=== PATIENT | female | born 1985 | race African-American/Black ===

== ENCOUNTER 2017-03-16 19:39 | Emergency (ER) | payer OTHER ==
[2017-03-16 19:47] VITALS: BP 214/104; BMI 26.6
--- NOTE | 2017-03-16 20:34 | DR.GENAD ---
HPI - PCP Primary Care Physician: VALDES - Complaint/Symptoms Chief Complaint Doctors Comments: Patient presents with complaint of nose bleed this morning and a headache, frontal Chief Complaint:: NOSE BLEED X 2 DAYS; EARACHE IN LEFT EAR Self Treatment fo Chief Complaint: SWEET OIL IN LEFT EAR; ADVIL; IBUPROFEN - Source History Provided: Patient - Mode of Arrival Mode of Arrival: Ambulatory - Timing Onset of Chief Complaint: 03/15/17 PMH - PMH Past Medical History: Yes Past Medical History: Asthma, Hypertension Past Surgical History: No - Family History History of Family Medical Conditions: No Family Medical History: Diabetes Mellitus, Hypertension - Social History Type of Tobacco Use: Cigarettes Alcohol Use: None Do you use any recreational Drugs:: No Lives With: Alone Lives Where: Home - infectious screening In the last 2 months have you had wt loss of >10#?: NO Have you had fever, night sweats or hemotysis?: No Have you traveled outside the country in the last 6 months?: No Isolation: Standard ROS - Review of Systems Eyes: No Symptoms Reported ENTM: No Symptoms Reported Respiratoy: No Symptoms Reported Cardiovascular: No Symptoms Reported Gastrointestinal/Abdominal: No Symptoms Reported Genitourinary: No Symptoms Reported Neurological: No Symptoms Reported Musculoskeletal: No Symptoms Reported Integumentary: No Symptoms Reported Hematologic/Lymphatic: No Symptoms Reported Endocrine: No Symptoms Reported Psychiatric: No Symptoms Reported All Other Systems: Reviewed and Negative PE - Vital Signs Vitals: Temperature 98.9 F Pulse Rate 69 Respiratory Rate 22 Blood Pressure [Right Arm] 146/81 Blood Pressure [Left Arm] 167/81 Blood Pressure 214/104 O2 Sat by Pulse Oximetry 98 - General Limitations: No Limitations General Appearance: Alert, In No Apparent Distress - Head Head Exam: Normal Inspection, Atraumatic, Other (left maxillary sinus tender to percussion) - Eyes Eye exam: Normal Appearance, PERRL, EOMI - ENT ENT Exam: Normal Exam External Ear Exam: Normal External Inspection TM/Canal Exam: Bilateral Normal Nose Exam: Abrasion (left medial septum) Mouth Exam: Normal Inspection Throat Exam: Normal Inspection - Neck Neck Exam: Normal Inspection, Full ROM - Chest Chest Inspection: Normal Inspection, Symmetric Chest Wall Rise - Respiratory Respiratory Exam: Normal Lung Sounds Bilat Respiratory Exam: Bilateral Clear to Auscultation - Cardiovascular Cardiovascular Exam: Regular Rate, Normal Rhythm - Abdominal Exam Abdominal Exam: Normal Inspection, Normal Bowel Sounds Abdominal Tenderness: negative: RUQ, RLQ, LUQ, LLQ, Epigastrium, Suprapubic, Diffuse, Mild, Moderate, Severe, Other - Extremities Extremities Exam: Normal Inspection, Full ROM - Back Back Exam: Normal Inspection, Full ROM - Neurologic Neurological Exam: Alert, Oriented X3, CN II-XII Intact - Psychiatric Psychiatric Exam: Normal Affect, Normal Mood - Diagnosis Discharge Problem: Epistaxis not due to trauma Maxillary sinusitis, acute Qualifiers: Recurrence: not specified as recurrent Qualified Code(s): J01.00 - Acute maxillary sinusitis, unspecified - Discharge Plan Condition: Stable - Follow ups/Referrals Follow ups/Referrals: CHIRAG VALDES [Primary Care Provider] - 3 days - Instructions
== END 2017-03-16 20:53 | disposition home or self-care (01) ==
LOC: ER 19:50
DX: R04.0 Epistaxis (principal); J01.80 Other acute sinusitis
CPT/HCPCS: 99281; 99282

== ENCOUNTER → 2017-04-29 | Outpatient (CLI) | payer OTHER | LOC: LAB 10:29 | PROVIDERS: ATTEND Obstetrics & Gynecology Obstetrics | DX: Z20.9 Contact with and (suspected) exposure to unspecified communicable disease (principal) | CPT/HCPCS: 36415; 86695; 86696; 86701 ==

== ENCOUNTER 2018-07-09 04:32 | Inpatient (IN) ==
--- NOTE | 2018-07-09 05:27 | DR.GENAD ---
HPI - PCP Primary Care Physician: - Complaint/Symptoms Chief Complaint Doctors Comments: Patient states she has been coughing up blood with SOB and xiphoid pain for the last 1 1/2 hours. States she woke up coughing blood with SOB and problems breathing. She denies fever, chills, cold, nauea or vomiting. States this is her eighth and she has seven living children and she is 36 weeks gestation. She denies tobacco or alcohol use. She denies stomach pain or history of ulcers. States she saw Dr. Valdes few days ago and everything was fine. She denies hematuria or oscar. She denies aspirin or tylenol use. She is complaining of SOB but denies wheezing. She denies leg or calf tenderness. Chief Complaint:: PT STATED SHE WAS SLEEP AN STARTING COUGHING. SOB AND COUGHING UP BLOOD. - Nurses notes reviewed Nurses Notes Review: Yes - Source History Provided: Patient - Mode of Arrival Mode of Arrival: Ambulatory - Timing Onset of Chief Complaint: 07/09/18 Came on: Suddenly - Duration Duration: Constant How lon Duration: Minutes - Location Location: xiphoid chest pain - Severity Severity: Moderate - Modifying Factors Worsens:: coughing Improves:: nothing PMH - PMH Past Medical History: No Past Medical History: Asthma, Hypertension Past Surgical History: No - Family History History of Family Medical Conditions: Yes Family Medical History: Diabetes Mellitus - Social History Does patient currently use any type of tobacco product: Yes Have you used tobacco products in the last 12 months: Yes Type of Tobacco Use: Cigarettes Does any household member use tobacco: No Alcohol Use: None Do you use any recreational Drugs:: No Lives With: Alone Lives Where: Home - infectious screening In the last 2 months have you had wt loss of >10#?: NO Have you had fever, night sweats or hemotysis?: No Have you traveled outside the country in the last 6 months?: No ROS - Review of Systems Constitutional: No Symptoms Reported. negative: See HPI, Chills, Diaphoresis, F ever, Malaise, Weakness, Irritable, Fatigue, Loss of Appetite, Other Eyes: No Symptoms Reported ENTM: No Symptoms Reported. negative: See HPI, Ear Pain, Ear Discharge, Pulling on Ears, Hearing Loss, Nose Pain, Nose Discharge, Epistaxis, Nose Congestion, Mouth Pain, Mouth Swelling, Loose Teeth, Drooling, Throat Pain, Throat Swelling, Ear Foreign Body, Tooth/Dental Pain Respiratoy: Productive Cough (cough with bright red blood), Short of Breath. negative: No Symptoms Reported, See HPI, Non-Productive Cough, Moist Cough, Dry Cough, Hacking Cough, Barking Cough, Brassy Cough, Orthopnea, Stridor, Wheezing, Hemoptysis, Other Cardiovascular: No Symptoms Reported, Chest Pain (xiphoid pain). negative: See HPI, Edema, Palpitations, Syncope, Cyanosis, Skin Mottling, Other Gastrointestinal/Abdominal: No Symptoms Reported. negative: See HPI, Abdominal Pain, Constipation, Diarrhea, Nausea, Vomiting, Food Intolerance, Other Genitourinary: No Symptoms Reported Neurological: No Symptoms Reported Musculoskeletal: No Symptoms Reported Integumentary: No Symptoms Reported. negative: See HPI, Change in Color, Change in Hair/Nails, Dryness, Lesions, Lumps, Rash, Itching, Wound, Bruises, Juandice, Other Hematologic/Lymphatic: No Symptoms Reported Endocrine: No Symptoms Reported Psychiatric: No Symptoms Reported. negative: See HPI, Anxiety, Depression, Hallucinations, Excessive crying, Suicidal, Other PE - General Limitations: No Limitations General Appearance: Alert, In Distress (slight) - Head Head Exam: Normal Inspection, Atraumatic, Normocephalic - Eyes Eye exam: Normal Appearance, PERRL, EOMI. negative: Scleral Icterus, Conjunctival Injection, Nystagmus, Miosis, Mydrasis, Periorbital Swelling, Periorbital Tenderness, Other - ENT ENT Exam: Normal Exam, Normal Oropharynx, Normal External Ear Exam, Mucous Membranes Moist, TM's Normal Bilaterally External Ear Exam: Normal External Inspection TM/Canal Exam: Bilateral Normal Nose Exam: Normal Nose Exam Mouth Exam: Normal Inspection. negative: Drooling, Trismus, Lip Swelling, Tongue Elevation, Tongue Swelling, Laceration, Other Throat Exam: Normal Inspection - Neck Neck Exam: Normal Inspection, Full ROM, Trachea Midline. negative: Tenderness, Meningismus, Lymphadenopathy, Thyromegaly, Other - Chest Chest Inspection: Normal Inspection, Symmetric Chest Wall Rise. negative: Tenderness, Rash, Abscess, Other - Respiratory Respiratory Exam: Normal Lung Sounds Bilat Respiratory Exam: Bilateral Rales, Bilateral Decreased Breath Sounds - Cardiovascular Cardiovascular Exam: Regular Rate, Normal Rhythm, Normal Heart Sounds - Abdominal Exam Abdominal Exam: Normal Inspection, Normal Bowel Sounds, Soft (gravid) Abdominal Tenderness: negative: RUQ, RLQ, LUQ, LLQ, Epigastrium, Suprapubic, Diffuse, Mild, Moderate, Severe, Other - Extremities Extremities Exam: Normal Inspection, Full ROM, Normal Capillary Refill. negative: Tenderness, Edema, Joint Swelling, Calf Tenderness, Other - Back Back Exam: Normal Inspection, Full ROM. negative: Tenderness, (R) CVA Tenderness, (L) CVA Tenderness, Muscle Spasm, Paraspinal Tenderness, Vertebral Tenderness, Rashes, (R) Sciatic Notch Tenderness, (L) Sciatic Notch Tendern, (R) Straight Leg Raise, (L) Straight Leg Raise, Other - Neurologic Neurological Exam: Alert, Oriented X3, CN II-XII Intact, Normal Gait, Reflexes Normal - Psychiatric Psychiatric Exam: Normal Affect, Normal Mood. negative: Depressed, Agitated, Anxious, Flat Affect, Manic, Homicidal Ideation, Suicidal Ideation, Other - Skin Skin Exam: Warm, Dry, Intact, Normal Color. negative: Rash, Cyanosis, Diaphoresis, Erythema, Pallor, Mottled, Other - Vital Signs Vitals: Temperature 97.6 F Pulse Rate [Apical] 76 Pulse Rate 76 Respiratory Rate 37 Blood Pressure [Right Arm] 164/79 Blood Pressure [Left Arm] 167/81 Blood Pressure 140/69 O2 Sat by Pulse Oximetry 96 Course - Consultation Called: 08:24 Call Returned: 08:24 (Dr. Valdes to admit) Consultation Comments: Dr. Valdes states to admit do ECHO cardogram in am; Rocephin one gram IV; Zithromax 500mg IV then 250mg daily; Toprol XL 100mg daily; heart tone q8h for 30 minutes stripes; Thiamine level; Labs in am. - Education/Counseling Education/Counseling: Patient Educated On: Treatment, Diagnosis, Needs for Follow Up ROR - Labs Reviewed Laboratory Results Reviewed?: Yes (All labs and x-ray results reviewed and discussed with patient) Result Diagrams: 07/09/18 05:44 07/09/18 05:44 - XRAY XRAY Interpreted by: Radiologist (CTA: No CT evidence of pulmonary embolism. Cardiomegaly with diffuse airspace disease abilaterally in keeping with edema and/or infiltrate. Small bilateral pleural effusions) - Labs Reviewed Laboratory: WBC 11.5 X10^3/uL (3.6-10.0) H 07/09/18 05:44 RBC 3.50 X10^6/uL (3.5-5.4) 07/09/18 05:44 Hgb 10.5 g/dL (12.0-16.0) L 07/09/18 05:44 Hct 31.7 % (36.0-47.0) L 07/09/18 05:44 MCV 90.4 fL (80.0-100.0) 07/09/18 05:44 MCH 30.1 pg (27.0-34.0) 07/09/18 05:44 MCHC 33.2 g/dL (33.0-35.0) 07/09/18 05:44 RDW 14.3 % (11.6-16.5) 07/09/18 05:44 Plt Count 200 X10^3/uL (150.0-450.0) 07/09/18 05:44 MPV 9.2 fL (7.4-11.0) 07/09/18 05:44 Neut % (Auto) 82.6 % (42.0-75.0) H 07/09/18 05:44 Lymph % (Auto) 12.3 % (21.0-51.0) L 07/09/18 05:44 [place] % (Auto) 3.1 % (0.0-13.0) 07/09/18 05:44 Eos % (Auto) 1.1 % (0.9-2.9) 07/09/18 05:44 Baso % (Auto) 0.9 % (0.2-1.0) 07/09/18 05:44 Neut # (Auto) 9.5 x10^3/uL (2.2-4.8) H 07/09/18 05:44 Lymph # (Auto) 1.4 X10^3/uL (1.3-2.9) 07/09/18 05:44 [place] # (Auto) 0.4 x10^3/uL (0.3-0.8) 07/09/18 05:44 Eos # (Auto) 0.1 x10^3/uL (0.0-0.2) 07/09/18 05:44 Baso # (Auto) 0.1 X10^3/uL (0.0-0.1) 07/09/18 05:44 Absolute Nucleated RBC 0.0 /100WBC 07/09/18 05:44 INR Target Range - 07/09/18 05:44 INR 1.00 (0.8-1.3) 07/09/18 05:44 APTT 27.8 SECONDS (22.9-36.5) 07/09/18 05:44 PTT Comment - 07/09/18 05:44 D-Dimer 942 ng/mL (0-400) H* 07/09/18 05:44 Sodium 140 mmol/L (136-145) 07/09/18 05:44 Corrected Sodium TNP 07/09/18 05:44 Potassium 3.1 mmol/L (3.5-5.1) L 07/09/18 05:44 Chloride 106 mmol/L (98-107) 07/09/18 05:44 Carbon Dioxide 21.8 mmol/L (21-32) 07/09/18 05:44 BUN 6 mg/dL (7-18) L 07/09/18 05:44 Creatinine 0.42 mg/dL (0.55-1.02) L 07/09/18 05:44 Est GFR (MDRD) Af Amer > 60 (>60) 07/09/18 05:44 Est GFR (MDRD) Non-Af > 60 (>60) 07/09/18 05:44 Glucose 80 mg/dL (65-99) 07/09/18 05:44 Calcium 7.8 mg/dL (8.5-10.1) L 07/09/18 05:44 Corrected Calcium 9.1 mg/dL (8.5-10.1) 07/09/18 05:44 Magnesium 1.5 mg/dL (1.7-2.9) L 07/09/18 05:44 Total Bilirubin 0.20 mg/dL (0.2-1.0) 07/09/18 05:44 AST 18 Units/L (15-37) 07/09/18 05:44 ALT 11 Units/L (12-78) L 07/09/18 05:44 Alkaline Phosphatase 97 Units/L (46-116) 07/09/18 05:44 Creatine Kinase 150 Units/L (26-192) 07/09/18 05:44 CK-MB (CK-2) 2.4 ng/mL (0-4.0) 07/09/18 05:44 CK/CKMB % Calc 1.6 % (<4) 07/09/18 05:44 Troponin I < 0.02 ng/mL (0-1.5) 07/09/18 05:44 Total Protein 6.2 g/dL (6.4-8.2) L 07/09/18 05:44 Albumin 2.4 g/dL (3.4-5.0) L 07/09/18 05:44 Globulin 3.8 g/dL (2.5-4.5) 07/09/18 05:44 Albumin/Globulin Ratio 0.6 Ratio (1.1-2.1) L 07/09/18 05:44 - Diagnosis Discharge Problem: Respiratory distress, Bilateral pleural effusion, Cardiomegaly, Intrauterine , Pulmonary infiltrate, Hypokalemia Pulmonary edema Qualifiers: Chronicity: acute Qualified Code(s): J81.0 - Acute pulmonary edema Chest pain Qualifiers: Chest pain type: unspecified Qualified Code(s): R07.9 - Chest pain, unspecified - Discharge Plan Disposition: ADMITTED INPATIENT Condition: Stable - Follow ups/Referrals Follow ups/Referrals: CHIRAG VALDES [Primary Care Provider] - 3 days - Instructions
[2018-07-09 05:52] LABS: BASOPHILS # (AUTO) 0.1 X10^3/uL (0.0-0.1); BASOPHILS % (AUTO) 0.9 % (0.2-1.0); EOSINOPHILS # (AUTO) 0.1 x10^3/uL (0.0-0.2); EOSINOPHILS % (AUTO) 1.1 % (0.9-2.9); HEMATOCRIT 31.7 % (36.0-47.0); HEMOGLOBIN 10.5 g/dL (12.0-16.0); LYMPHOCYTES # (AUTO) 1.4 X10^3/uL (1.3-2.9); LYMPHOCYTES % (AUTO) 12.3 % (21.0-51.0); MEAN CORPUSCULAR HEMOGLOBIN 30.1 pg (27.0-34.0); MEAN CORPUSCULAR HGB CONC 33.2 g/dL (33.0-35.0); MEAN CORPUSCULAR VOLUME 90.4 fL (80.0-100.0); MEAN PLATELET VOLUME 9.2 fL (7.4-11.0); MONOCYTES # (AUTO) 0.4 x10^3/uL (0.3-0.8); MONOCYTES % (AUTO) 3.1 % (0.0-13.0); NEUTROPHILS # (AUTO) 9.5 x10^3/uL (2.2-4.8); NEUTROPHILS % (AUTO) 82.6 % (42.0-75.0); PLATELET COUNT 200 X10^3/uL (150.0-450.0); RED CELL DISTRIBUTION WIDTH 14.3 % (11.6-16.5); WHITE BLOOD COUNT 11.5 X10^3/uL (3.6-10.0)
[2018-07-09] MEDS ORDERED: NS 1000 ML 1,000 ML IV SCH (06:00)
[2018-07-09 06:08] LABS: BLOOD UREA NITROGEN 6 mg/dL (7-18); CALCIUM 7.8 mg/dL (8.5-10.1); CARBON DIOXIDE 21.8 mmol/L (21-32); CHLORIDE 106 mmol/L (98-107); CREATININE 0.42 mg/dL (0.55-1.02); SODIUM 140 mmol/L (136-145); TROPONIN I < 0.02 ng/mL (0-1.5); eGFR NON BLACK RACES > 60 (>60)
[2018-07-09 06:12] LABS: ALANINE AMINOTRANSFERASE 11 Units/L (12-78); ALBUMIN 2.4 g/dL (3.4-5.0); ALKALINE PHOSPHATASE 97 Units/L (46-116); ASPARTATE AMINO TRANSFERASE 18 Units/L (15-37); CKMB % 1.6 % (<4); COR CA(FOR HYPOALB) 9.1 mg/dL (8.5-10.1); CREATINE KINASE 150 Units/L (26-192); CREATINE KINASE MB 2.4 ng/mL (0-4.0); MAGNESIUM 1.5 mg/dL (1.7-2.9); TOTAL PROTEIN 6.2 g/dL (6.4-8.2)
[2018-07-09] MEDS ORDERED: K-LYTE EFFERVESCENT PO STA (06:23)
[2018-07-09] MEDS ORDERED: NS 100 ML IV 100 ML ONE (06:45)
--- NOTE | 2018-07-09 07:52 | CT ---
HISTORY: Shortness of breath, hemoptysis Study: CT chest with contrast Comparison: None Technique: Multiple axial images of the chest were obtained from the thoracic inlet to the upper abdomen with the administration of IV contrast. Coronal and sagittal three-dimensional reformatted MIP images were also submitted utilizing CTA protocol. Dose reduction techniques including automated exposure control (AEC) and adjustment of mA and kV were utilized. Findings: The mediastinum does not demonstrate definite evidence of significant pathological lymphadenopathy. There is no significant pericardial effusion observed. The heart is enlarged. The thoracic aorta is normal in its contour without evidence for aneurysmal dilatation. Allowing for streak artifact, no definite focal well-circumscribed filling defects are appreciated within the main pulmonary arteries. Evaluation of the more distal branches is somewhat limited due to extensive diffuse bilateral pulmonary opacities suggesting edema and/or infiltrate. Recommend clinical correlation and continued close interval follow-up for further evaluation. Small bilateral pleural effusions are also noted right greater than left. IMPRESSION: No definite CT evidence of pulmonary embolism is appreciated as noted above. Cardiomegaly. Diffuse airspace disease bilaterally suggesting edema and/or infiltrate. Correlate clinically. Small bilateral pleural effusions. Reported By:
[2018-07-09] MEDS ORDERED: ROCEPHIN VIAL 1 GRAM IVP ONE (08:21)
[2018-07-09] MEDS ORDERED: ROCEPHIN VIAL 1 GRAM ONE (08:22)
[2018-07-09] MEDS ORDERED: ZOFRAN INJ 4 MG VIAL IVP PRN (08:26)
[2018-07-09] MEDS ORDERED: TOPROL XL PO STA (08:31)
[2018-07-09 08:50] LABS: BILIRUBIN,URINE NEGATIVE (NEGATIVE); BLOOD/HEMOGLOBIN,URINE 1+ (NEGATIVE); GLUCOSE, URINE NEGATIVE (NEGATIVE); KETONES,URINE NEGATIVE (NEGATIVE); LEUKOCYTE ESTERASE ,URINE 1+ (NEGATIVE); NITRITES,URINE NEGATIVE (NEGATIVE); PROTEIN,URINE 2+ (NEGATIVE); UROBILINOGEN,URINE NORMAL (NORMAL)
[2018-07-09 09:15] LABS: AMORPHOUS SEDIMENT,UR TRACE /HPF (NEGATIVE); APPEARANCE,URINE HAZY (CLEAR); BACTERIA,URINE TRACE /HPF (NEGATIVE); COLOR,URINE YELLOW (YELLOW); HYALINE CASTS, URINE RARE /LPF (NEGATIVE); RBC,URINE 0-2 /HPF (NONE SEEN); SQUAMOUS EPITHELIAL CELL,UR MANY /HPF (NEGATIVE)
[2018-07-09 10:11] VITALS: BMI 30.2
[2018-07-09] MEDS: ZITHROMAX INJ 500 MG VIAL 500 MG in NS 250 ML IV 250 ML IV SCH (10:12)
[2018-07-09 11:52] LABS: ABG ALLEN TEST POS; ABG BASE EXCESS -1.3 mmol/L (-2.0-2.0); ABG HCO3 22.7 mmol/L (22-26)
[2018-07-09] MEDS: XOPENEX 1.25 MG/3 ML NEBULE NEB SCH ×2 (12:35→16:46)
[2018-07-09] MEDS: NS 1000 ML 1,000 ML IV SCH (14:17)
[2018-07-09] MEDS ORDERED: MICRO K EXTEN CAP 10 MEQ PO PRN (14:43)
[2018-07-09] MEDS ORDERED: KLOR-CON PO PRN (14:43)
[2018-07-09] MEDS ORDERED: POTASSIUM CHL 60 MEQ/NS 0.45% 500 ML IV PRN (14:43)
[2018-07-09] MEDS ORDERED: POTASSIUM CHL 40 MEQ/NS 0.45% 500 ML IV PRN (14:43)
[2018-07-09] MEDS ORDERED: K-RIDER 10 MEQ/NS 100 ML 10 MEQ/100 ML BAG IV PRN (14:43)
[2018-07-09] MEDS ORDERED: POTASSIUM CHLORIDE LIQ 20 MEQ UDC PO PRN (14:43)
[2018-07-09] MEDS: MAGNESIUM SULFATE 1 GRAM/100 mL PREMIX 1 GM/100 ML BAG IV PRN ×2 (16:28→17:41)
[2018-07-09] MEDS: K-DUR TAB 20 MEQ PO PRN (16:41)
[2018-07-09] MEDS ORDERED: LOPRESSOR TAB 50 MG PO ONE (22:21)
[2018-07-10] MEDS: XOPENEX 1.25 MG/3 ML NEBULE NEB SCH ×6 (00:30→20:03)
[2018-07-10] MEDS ORDERED: APRESOLINE TAB 25 MG PO ONE (00:44)
[2018-07-10] MEDS ORDERED: LASIX IVP ONE (00:45)
[2018-07-10] MEDS ORDERED: LASIX ONE (00:47)
[2018-07-10] MEDS ORDERED: APRESOLINE TAB 25 MG ONE (00:47)
[2018-07-10] MEDS ORDERED: APRESOLINE TAB 25 MG PO SCH (06:00)
[2018-07-10 06:12] LABS: BASOPHILS % (AUTO) 0.4 % (0.2-1.0); EOSINOPHILS # (AUTO) 0.1 x10^3/uL (0.0-0.2); EOSINOPHILS % (AUTO) 1.1 % (0.9-2.9); HEMATOCRIT 30.8 % (36.0-47.0); HEMOGLOBIN 10.3 g/dL (12.0-16.0); LYMPHOCYTES # (AUTO) 1.5 X10^3/uL (1.3-2.9); LYMPHOCYTES % (AUTO) 11.7 % (21.0-51.0); MEAN CORPUSCULAR HEMOGLOBIN 30.2 pg (27.0-34.0); MEAN CORPUSCULAR HGB CONC 33.3 g/dL (33.0-35.0); MEAN CORPUSCULAR VOLUME 90.7 fL (80.0-100.0); MONOCYTES # (AUTO) 0.5 x10^3/uL (0.3-0.8); MONOCYTES % (AUTO) 4.1 % (0.0-13.0); NEUTROPHILS # (AUTO) 10.3 x10^3/uL (2.2-4.8); NEUTROPHILS % (AUTO) 82.7 % (42.0-75.0); PLATELET COUNT 207 X10^3/uL (150.0-450.0); RED BLOOD COUNT 3.39 X10^6/uL (3.5-5.4); RED CELL DISTRIBUTION WIDTH 14.5 % (11.6-16.5); WHITE BLOOD COUNT 12.4 X10^3/uL (3.6-10.0)
[2018-07-10 06:34] LABS: ALANINE AMINOTRANSFERASE 14 Units/L (12-78); ALBUMIN 2.4 g/dL (3.4-5.0); ALKALINE PHOSPHATASE 101 Units/L (46-116); ASPARTATE AMINO TRANSFERASE 19 Units/L (15-37); BLOOD UREA NITROGEN 6 mg/dL (7-18); CALCIUM 8.3 mg/dL (8.5-10.1); CARBON DIOXIDE 21.7 mmol/L (21-32); CHLORIDE 104 mmol/L (98-107); COR CA(FOR HYPOALB) 9.6 mg/dL (8.5-10.1); COR NA(FOR HYPERGLY) 137 mmol/L (136-145); CREATININE 0.46 mg/dL (0.55-1.02); MAGNESIUM 1.8 mg/dL (1.7-2.9); SODIUM 137 mmol/L (136-145); TOTAL PROTEIN 6.4 g/dL (6.4-8.2); eGFR NON BLACK RACES > 60 (>60)
[2018-07-10] MEDS ORDERED: TOPROL XL ONE (08:02)
[2018-07-10] MEDS: ZITHROMAX INJ 500 MG VIAL 500 MG in NS 250 ML IV 250 ML IV SCH (08:23)
[2018-07-10] MEDS: TOPROL XL PO SCH (08:24)
[2018-07-10] MEDS ORDERED: TOPROL XL PO SCH (09:00)
[2018-07-10] MEDS ORDERED: ZITHROMAX INJ 500 MG VIAL 500 MG in NS 250 ML IV 250 ML IV SCH (09:00)
[2018-07-10] MEDS ORDERED: ROCEPHIN VIAL 1 GRAM IVP SCH (09:00)
[2018-07-10] MEDS ORDERED: MILK OF MAGNESIA PO SCH (09:00)
[2018-07-10] MEDS: THIAMINE HCL INJ IM SCH (11:31)
[2018-07-10] MEDS: APRESOLINE TAB 25 MG PO SCH ×4 (11:32→20:44)
[2018-07-10] MEDS: LASIX PO SCH (15:20)
[2018-07-10] MEDS: NS 1000 ML 1,000 ML IV SCH (16:52)
[2018-07-10] MEDS: COLACE CAP 100 MG PO SCH (20:44)
[2018-07-11] MEDS ORDERED: APRESOLINE TAB 25 MG PO ONE (00:15)
[2018-07-11] MEDS: XOPENEX 1.25 MG/3 ML NEBULE NEB SCH ×2 (00:33→05:30)
[2018-07-11 01:31] LABS: CREATININE,URINE 25.89 mg/dL (29-226); TOTAL PROTEIN,URINE 29.2 mg/dl (0-11.9)
[2018-07-11 01:44] LABS: CREATININE 24 HOUR,URINE 1.35 g/24 hr (0.67-1.59)
[2018-07-11] MEDS: APRESOLINE TAB 25 MG PO SCH ×2 (05:43→16:50)
[2018-07-11 06:07] LABS: BASOPHILS # (AUTO) 0.1 X10^3/uL (0.0-0.1); EOSINOPHILS # (AUTO) 0.2 x10^3/uL (0.0-0.2); EOSINOPHILS % (AUTO) 2.3 % (0.9-2.9); HEMATOCRIT 31.2 % (36.0-47.0); HEMOGLOBIN 10.5 g/dL (12.0-16.0); LYMPHOCYTES # (AUTO) 2.1 X10^3/uL (1.3-2.9); LYMPHOCYTES % (AUTO) 20.8 % (21.0-51.0); MEAN CORPUSCULAR HGB CONC 33.6 g/dL (33.0-35.0); MEAN CORPUSCULAR VOLUME 89.3 fL (80.0-100.0); MEAN PLATELET VOLUME 9.6 fL (7.4-11.0); MONOCYTES # (AUTO) 0.4 x10^3/uL (0.3-0.8); MONOCYTES % (AUTO) 4.3 % (0.0-13.0); NEUTROPHILS # (AUTO) 7.3 x10^3/uL (2.2-4.8); NEUTROPHILS % (AUTO) 71.6 % (42.0-75.0); PLATELET COUNT 194 X10^3/uL (150.0-450.0); RED BLOOD COUNT 3.49 X10^6/uL (3.5-5.4); RED CELL DISTRIBUTION WIDTH 14.7 % (11.6-16.5); WHITE BLOOD COUNT 10.3 X10^3/uL (3.6-10.0)
[2018-07-11 06:23] LABS: ALANINE AMINOTRANSFERASE 11 Units/L (12-78); ALBUMIN 2.3 g/dL (3.4-5.0); ALKALINE PHOSPHATASE 94 Units/L (46-116); ASPARTATE AMINO TRANSFERASE 14 Units/L (15-37); BLOOD UREA NITROGEN 6 mg/dL (7-18); CALCIUM 8.6 mg/dL (8.5-10.1); CARBON DIOXIDE 23.7 mmol/L (21-32); CHLORIDE 104 mmol/L (98-107); CREATININE 0.43 mg/dL (0.55-1.02); SODIUM 139 mmol/L (136-145); TOTAL PROTEIN 6.6 g/dL (6.4-8.2); eGFR NON BLACK RACES > 60 (>60)
[2018-07-11] MEDS ORDERED: TOPROL XL ONE (08:54)
[2018-07-11] MEDS ORDERED: LASIX PO SCH (09:00)
[2018-07-11] MEDS: LASIX PO SCH (09:14)
[2018-07-11] MEDS: ZITHROMAX INJ 500 MG VIAL 500 MG in NS 250 ML IV 250 ML IV SCH (09:15)
[2018-07-11] MEDS: THIAMINE HCL INJ IM SCH (09:15)
[2018-07-11] MEDS: TOPROL XL PO SCH (09:15)
[2018-07-11] MEDS: K-DUR TAB 20 MEQ PO PRN (09:16)
[2018-07-11] MEDS: NS 1000 ML 1,000 ML IV SCH (09:16)
[2018-07-11] MEDS ORDERED: CARDIZEM TAB 30 MG PLAIN PO PRN (09:51)
[2018-07-11] MEDS ORDERED: MAGNESIUM SULFATE 40 GRAMS IV 40 G/1,000 ML BAG ONE (10:49)
[2018-07-11] MEDS ORDERED: D5LR 1L W PITOCIN 10 UNITS/L 10 UNITS/1,000 ML BAG IV ONE (10:50)
[2018-07-11] MEDS ORDERED: MAGNESIUM SULFATE 1 GRAM/100 mL PREMIX 2 G/200 ML BAG IV SCH (11:00)
[2018-07-11] MEDS ORDERED: MAGNESIUM SULFATE 40 GRAMS IV IV PRN (11:00)
[2018-07-11] MEDS ORDERED: D5LR 1L W PITOCIN 10 UNITS/L 10 UNITS/1,000 ML BAG IV PRN (11:00)
[2018-07-11] MEDS ORDERED: LR 1000 ML IV 1,000 ML ONE ×3 (11:06→22:12)
[2018-07-11] MEDS ORDERED: PITOCIN IVP ONE (13:15)
[2018-07-11] MEDS ORDERED: NUBAIN INJ 200 MG VIAL MULTIDOSE IVP PRN (13:15)
[2018-07-11] MEDS ORDERED: LR 1000 ML IV 1,000 ML IV SCH (14:00)
[2018-07-11] MEDS ORDERED: NEO-SYNEPHRINE INJ ONE (15:50)
[2018-07-11] MEDS ORDERED: NAROPIN EPIDURAL 0.2% + FENTANYL 90MCG 60 ML EPI ONE (18:34)
[2018-07-11] MEDS ORDERED: PITOCIN ONE (18:34)
[2018-07-11] MEDS ORDERED: FENTANYL INJ 100 mcg ONE (18:34)
[2018-07-11] MEDS: EPHEDRINE SULFATE INJ ONE ×3 (19:24→21:15)
[2018-07-12] MEDS: APRESOLINE TAB 25 MG PO SCH ×2 (00:35→21:34)
[2018-07-12] MEDS: COLACE CAP 100 MG PO SCH ×2 (00:35→20:32)
[2018-07-12] MEDS ORDERED: D5 1/2 NS 1L W PITOCIN 20 UNITS/L 20 UNITS/1,000 ML BAG IV ONE (01:31)
[2018-07-12] MEDS ORDERED: D5LR 1L W PITOCIN 10 UNITS/L 10 UNITS/1,000 ML BAG IV ONE (01:31)
[2018-07-12] MEDS ORDERED: NAROPIN EPIDURAL 0.2% + FENTANYL 90MCG 60 ML EPI ONE (01:51)
[2018-07-12] MEDS ORDERED: MAGNESIUM SULFATE 40 GRAMS IV 40 G/1,000 ML BAG IV PRN ×2 (05:00→21:11)
[2018-07-12] MEDS ORDERED: DERMOPLAST SPRAY TOP PRN (05:38)
[2018-07-12] MEDS ORDERED: MOTRIN TAB 800 MG PO PRN (05:38)
[2018-07-12] MEDS ORDERED: LR 1000 ML IV 1,000 ML IV SCH (06:00)
[2018-07-12] MEDS ORDERED: D5 1/2 NS 1000 ML 1,000 ML with PITOCIN 20 UNITS IV SCH ×2 (06:00)
[2018-07-12] MEDS ORDERED: CARDIZEM CD 240 MG PO SCH (09:00)
[2018-07-12] MEDS ORDERED: CARDIZEM CD 360 MG PO SCH (09:00)
[2018-07-12] MEDS: ZITHROMAX INJ 500 MG VIAL 500 MG in NS 250 ML IV 250 ML IV SCH (09:30)
[2018-07-12 11:30] LABS: BASOPHILS % (AUTO) 0.3 % (0.2-1.0); EOSINOPHILS # (AUTO) 0.1 x10^3/uL (0.0-0.2); EOSINOPHILS % (AUTO) 1.3 % (0.9-2.9); HEMATOCRIT 30.8 % (36.0-47.0); HEMOGLOBIN 10.4 g/dL (12.0-16.0); LYMPHOCYTES # (AUTO) 1.3 X10^3/uL (1.3-2.9); LYMPHOCYTES % (AUTO) 11.4 % (21.0-51.0); MEAN CORPUSCULAR HEMOGLOBIN 30.3 pg (27.0-34.0); MEAN CORPUSCULAR HGB CONC 33.7 g/dL (33.0-35.0); MEAN CORPUSCULAR VOLUME 89.7 fL (80.0-100.0); MEAN PLATELET VOLUME 9.6 fL (7.4-11.0); MONOCYTES # (AUTO) 0.5 x10^3/uL (0.3-0.8); MONOCYTES % (AUTO) 4.1 % (0.0-13.0); NEUTROPHILS # (AUTO) 9.6 x10^3/uL (2.2-4.8); NEUTROPHILS % (AUTO) 82.9 % (42.0-75.0); PLATELET COUNT 211 X10^3/uL (150.0-450.0); RED BLOOD COUNT 3.43 X10^6/uL (3.5-5.4); RED CELL DISTRIBUTION WIDTH 14.8 % (11.6-16.5); WHITE BLOOD COUNT 11.6 X10^3/uL (3.6-10.0)
[2018-07-12 13:19] LABS: CHLORIDE 103 mmol/L (98-107); SODIUM 136 mmol/L (136-145); eGFR NON BLACK RACES > 60 (>60)
[2018-07-12] MEDS ORDERED: NICOTINE PATCH ONE (14:06)
[2018-07-12 14:11] LABS: ALANINE AMINOTRANSFERASE 11 Units/L (12-78); ALBUMIN 2.2 g/dL (3.4-5.0); ALKALINE PHOSPHATASE 95 Units/L (46-116); ASPARTATE AMINO TRANSFERASE 27 Units/L (15-37); BLOOD UREA NITROGEN 5 mg/dL (7-18); CALCIUM 7.6 mg/dL (8.5-10.1); CARBON DIOXIDE 19.3 mmol/L (21-32); COR NA(FOR HYPERGLY) 137 mmol/L (136-145); CREATININE 0.49 mg/dL (0.55-1.02); TOTAL PROTEIN 6.2 g/dL (6.4-8.2)
[2018-07-12] MEDS ORDERED: APRESOLINE TAB 25 MG ONE (21:20)
[2018-07-13] MEDS: APRESOLINE TAB 25 MG PO SCH (05:58)
[2018-07-13 06:07] LABS: BASOPHILS % (AUTO) 0.3 % (0.2-1.0); EOSINOPHILS # (AUTO) 0.2 x10^3/uL (0.0-0.2); EOSINOPHILS % (AUTO) 2.1 % (0.9-2.9); HEMATOCRIT 30.8 % (36.0-47.0); HEMOGLOBIN 10.3 g/dL (12.0-16.0); MEAN CORPUSCULAR HEMOGLOBIN 30.5 pg (27.0-34.0); MEAN CORPUSCULAR HGB CONC 33.6 g/dL (33.0-35.0); MEAN CORPUSCULAR VOLUME 90.8 fL (80.0-100.0); MEAN PLATELET VOLUME 10.3 fL (7.4-11.0); MONOCYTES # (AUTO) 0.3 x10^3/uL (0.3-0.8); MONOCYTES % (AUTO) 3.3 % (0.0-13.0); NEUTROPHILS # (AUTO) 6.2 x10^3/uL (2.2-4.8); NEUTROPHILS % (AUTO) 71.3 % (42.0-75.0); PLATELET COUNT 227 X10^3/uL (150.0-450.0); RED BLOOD COUNT 3.39 X10^6/uL (3.5-5.4); RED CELL DISTRIBUTION WIDTH 14.7 % (11.6-16.5); WHITE BLOOD COUNT 8.6 X10^3/uL (3.6-10.0)
[2018-07-13 06:22] LABS: ALANINE AMINOTRANSFERASE 14 Units/L (12-78); ALBUMIN 2.2 g/dL (3.4-5.0); ALKALINE PHOSPHATASE 93 Units/L (46-116); ASPARTATE AMINO TRANSFERASE 23 Units/L (15-37); BLOOD UREA NITROGEN 9 mg/dL (7-18); CALCIUM 7.6 mg/dL (8.5-10.1); CARBON DIOXIDE 25.4 mmol/L (21-32); CHLORIDE 104 mmol/L (98-107); CREATININE 0.55 mg/dL (0.55-1.02); SODIUM 138 mmol/L (136-145); TOTAL PROTEIN 6.3 g/dL (6.4-8.2); eGFR NON BLACK RACES > 60 (>60)
[2018-07-13] MEDS ORDERED: NICOTINE PATCH TD SCH (09:00)
[2018-07-13] MEDS ORDERED: CARDIZEM CD 360 MG PO SCH (09:00)
[2018-07-13] MEDS ORDERED: ZITHROMAX INJ 500 MG VIAL 500 MG in NS 250 ML IV 250 ML IV PRN ×2 (09:19→10:00)
[2018-07-13] MEDS: FLONASE NASAL SPRAY ENOSTRIL SCH (10:38)
[2018-07-13 15:19] VITALS: BP 137/73
== END 2018-07-13 17:00 | disposition home or self-care (01) | DRG 805 ==
LOC: ER 04:40 → ICU 09:10 → LD 07-11 10:32 → ICU 07-12 05:50
PROVIDERS: ADMIT Obstetrics & Gynecology Obstetrics; ATTEND Obstetrics & Gynecology Obstetrics
DX: Z3A.36 36 weeks gestation of pregnancy; O88.813 Other embolism in pregnancy, third trimester; O60.13X0 Preterm labor second trimester with preterm delivery third trimester, not applicable or unspecified; O36.5930 Maternal care for other known or suspected poor fetal growth, third trimester, not applicable or unspecified; R06.02 Shortness of breath; R06.03 Acute respiratory distress; O14.03 Mild to moderate pre-eclampsia, third trimester; R04.2 Hemoptysis; O26.893 Other specified pregnancy related conditions, third trimester; Z37.0 Single live birth; R94.31 Abnormal electrocardiogram [ECG] [EKG]; J81.0 Acute pulmonary edema
CPT/HCPCS: 36415; 36600; 51702; 59409; 71275; 80053; 81001; 81050; 82550; 82553; 82570; 82803; 83735; 84132; 84157; 84425; 84484; 85025; 85378; 85610; 85730; 86592; 87040; 87070; 87077; 87186; 87205; 93005; 93306; 94640; 96365; 96367; 96374; 96375; 99284; A4216; A4222; J0456; J0696; J1940; J2370; J2405; J2590; J3010; J3411; J3475; J3490; J7030; J7050; J7120; S5010